=== PATIENT | male | born 1990 | race African-American/Black ===

== ENCOUNTER 2017-07-05 10:37 | Emergency (ER) | payer OTHER ==
[2017-07-05 11:42] LABS: BILIRUBIN,URINE NEGATIVE (NEG); CLARITY,URINE CLEAR; COLOR,URINE YELLOW; GLUCOSE,URINE NEGATIVE (NEG); NITRITE,URINE NEGATIVE (NEG); PROTEIN,URINE NEGATIVE (NEG-TRACE)
[2017-07-05 12:15] LABS: BACTERIA,URINE 0 /HPF (0-FEW)
== END 2017-07-05 13:20 | disposition home or self-care (01) ==
LOC: ER 10:37
DX: R30.0 Dysuria (principal); R31.9 Hematuria, unspecified; F12.10 Cannabis abuse, uncomplicated
CPT/HCPCS: 81001; 87491; 87591; 99284